=== PATIENT | female | born 1995 | race Caucasian/White ===

== ENCOUNTER 2017-08-20 21:13 | Outpatient (CLI) | payer OTHER ==
[2017-08-20] MEDS ORDERED: LACTATED RINGER'S 500 ML IV (22:18)
[2017-08-20] MEDS: LACTATED RINGER'S 1,000 ML IV ×2 (22:26→23:36)
[2017-08-20 23:15] LABS: ADD UMIC YES; UR ASCORBIC ACID NEGATIVE (NEGATIVE); UR BACTERIA FEW /HPF (NONE SEEN); UR BILIRUBIN (Dip) NEGATIVE (NEGATIVE); UR BLOOD (Dip) NEGATIVE (NEGATIVE); UR CLARITY SLIGHTLY CLOUDY (CLEAR); UR COLOR STRAW (YELLOW); UR GLUCOSE (Dip) NEGATIVE (NEGATIVE); UR KETONES (Dip) NEGATIVE (NEGATIVE); UR LEUKOCYTE ESTERASE (Dip) 3+ Leu/ul (NEGATIVE); UR NITRITE (Dip) NEGATIVE (NEGATIVE); UR RBC 0 /HPF (0-5); UR SPECIFIC GRAVITY (Dip) 1.002 (1.003-1.030); UR TOTAL PROTEIN (Dip) NEGATIVE (NEGATIVE); UR UROBILINOGEN (Dip) NEGATIVE (NEGATIVE); UR WBC 24 /HPF (0-5)
[2017-08-21 00:24] LABS: RUPTURE FETAL MEMBRANES NEGATIVE (NEGATIVE)
[2017-08-21] MEDS: CEPHALEXIN 500 MG CAP PO (01:37)
== END 2017-08-21 01:39 | disposition home or self-care (01) ==
LOC: OBT 21:13 → L-D 21:14
DX: O36.5930 Maternal care for other known or suspected poor fetal growth, third trimester, not applicable or unspecified (principal); Z3A.33 33 weeks gestation of pregnancy
CPT/HCPCS: 76815; 76818; 81001; 84112; 87086; 96360; 96361

== ENCOUNTER 2017-08-31 21:18 | Outpatient (CLI) | payer OTHER ==
[2017-08-31] MEDS ORDERED: CITRIC ACID/SODIUM CITRATE 15 ML CUP PO (22:09)
[2017-08-31] MEDS ORDERED: CITRIC ACID/SODIUM CITRATE 15 ML CUP (22:19)
[2017-08-31] MEDS: CITRIC ACID/SODIUM CITRATE 15 ML CUP PO (22:34)
== END 2017-08-31 23:10 | disposition home or self-care (01) ==
LOC: OBT 21:18 → L-D 21:20
DX: O36.8130 Decreased fetal movements, third trimester, not applicable or unspecified (principal); O26.893 Other specified pregnancy related conditions, third trimester; R10.12 Left upper quadrant pain; Z3A.36 36 weeks gestation of pregnancy
CPT/HCPCS: 76818

== ENCOUNTER 2017-08-31 23:22 | Emergency (ER) | payer OTHER | END 2017-09-01 01:09 | disposition home or self-care (01) | LOC: FTE 23:22 | DX: O99.613 Diseases of the digestive system complicating pregnancy, third trimester (principal); K21.9 Gastro-esophageal reflux disease without esophagitis; R07.9 Chest pain, unspecified; Z3A.37 37 weeks gestation of pregnancy | CPT/HCPCS: 93005; 99283 ==

== ENCOUNTER 2017-09-17 12:31 | Outpatient (CLI) | payer OTHER ==
[2017-09-17 13:33] LABS: RUPTURE FETAL MEMBRANES NEGATIVE (NEGATIVE)
== END 2017-09-17 14:28 | disposition home or self-care (01) ==
LOC: OBT 12:31 → L-D 12:33 → OBT 14:28
DX: O24.92 Unspecified diabetes mellitus in childbirth (principal); Z3A.39 39 weeks gestation of pregnancy
CPT/HCPCS: 76818; 84112

== ENCOUNTER 2017-09-23 00:20 | Inpatient (IN) | payer OTHER ==
[2017-09-23] MEDS ORDERED: LACTATED RINGER'S 1,000 ML IV (01:05)
[2017-09-23] MEDS: LACTATED RINGER'S 1,000 ML IV ×3 (01:15→15:54)
[2017-09-23] MEDS ORDERED: METHYLERGONOVINE 0.2 MG INJ IM (01:30)
[2017-09-23] MEDS ORDERED: MISOPROSTOL 200 MCG TAB PR (01:30)
[2017-09-23] MEDS ORDERED: LIDOCAINE 1% (MPF) 30 ML INJ INJ (01:30)
[2017-09-23] MEDS ORDERED: CARBOPROST 250 MCG INJ IM (01:30)
[2017-09-23] MEDS ORDERED: OXYTOCIN 30 UNITS/LR 500 ML IV ×3 (01:30)
[2017-09-23 02:07] LABS: ADD MAN DIFF? NO
[2017-09-23 02:10] LABS: BASOPHIL # 0.1 10^3/ul (0.0-0.1); BASOPHILS % 0.9 % (0.0-2.0); EOSINOPHILS # 0.2 10^3/ul (0.0-0.5); EOSINOPHILS % 2.3 % (0.0-7.0); HEMATOCRIT 40.1 % (37.0-47.0); HEMOGLOBIN 14.1 g/dl (12.0-16.0); LYMPHOCYTES # 1.6 10^3/ul (0.8-2.9); LYMPHOCYTES % 24.2 % (15.0-51.0); MEAN CORPUSCULAR HEMOGLOBIN 31.3 pg (29.0-33.0); MEAN CORPUSCULAR HGB CONC 35.2 g/dl (32.0-37.0); MEAN CORPUSCULAR VOLUME 89.1 fl (82.0-101.0); MEAN PLATELET VOLUME 11.9 fl (7.4-10.4); MONOCYTE # 0.7 10^3/ul (0.3-0.9); MONOCYTES % 11.2 % (0.0-11.0); NEUTROPHIL # 3.9 10^3/ul (1.6-7.5); NEUTROPHILS % 59.1 % (39.0-77.0); PLATELET COUNT 270 10^3/UL (140-415); RED CELL DISTRIBUTION WIDTH 12.7 % (11.5-14.5)
[2017-09-23 02:10] LABS: WHITE BLOOD COUNT 6.6 10^3/ul (4.8-10.8)
[2017-09-23 02:28] LABS: INR 0.91; PROTIME 12.3 Sec (11.9-14.9)
[2017-09-23 02:29] LABS: PARTIAL THROMBOPLASTIN TIME 24.5 Sec (25.0-35.0)
[2017-09-23] MEDS ORDERED: GUAIFENESIN 20 MG/ML 5ML CUP PO (02:30)
[2017-09-23] MEDS: GUAIFENESIN 20 MG/ML 5ML CUP PO ×4 (03:12→22:50)
[2017-09-23 04:06] LABS: HEPATITIS B SURFACE ANTIGEN NEGATIVE (NEGATIVE)
[2017-09-23] MEDS: ACETAMINOPHEN 325 MG TAB PO (04:14)
[2017-09-23] MEDS ORDERED: ACETAMINOPHEN 325 MG TAB PO (04:30)
[2017-09-23] MEDS: DINOPROSTONE 10 MG VAG SUPP VAG (08:12)
[2017-09-23 14:54] LABS: RAPID PLASMA REAGIN NONREACTIVE (NR)
[2017-09-24] MEDS: BUTORPHANOL 2 MG INJ IV (00:10)
[2017-09-24] MEDS: LACTATED RINGER'S 1,000 ML IV ×2 (00:12→08:35)
[2017-09-24] MEDS: DINOPROSTONE 10 MG VAG SUPP VAG (03:32)
== END 2017-09-24 14:45 | disposition home or self-care (01) | DRG 782 ==
LOC: OBT 00:20 → L-D 00:20 → OBT 01:03 → L-D 01:03
PROVIDERS: Obstetrics & Gynecology
PROC: 3E0P7VZ Introduction of Hormone into Female Reproductive, Via Natural or Artificial Opening (ICD-10-PCS; principal; 2017-09-23)
DX: O48.0 Post-term pregnancy (principal); O61.0 Failed medical induction of labor; Z3A.40 40 weeks gestation of pregnancy
CPT/HCPCS: 36415; 76815; 76818; 85025; 85610; 85730; 86592; 86850; 86900; 86901; 87340

== ENCOUNTER 2017-09-26 08:19 | Outpatient (CLI) | payer OTHER | END 2017-09-26 10:25 | disposition home or self-care (01) | LOC: OBT 08:19 → L-D 08:20 → OBT 10:25 | DX: O24.410 Gestational diabetes mellitus in pregnancy, diet controlled (principal); Z3A.40 40 weeks gestation of pregnancy | CPT/HCPCS: 76815; 76818 ==

== ENCOUNTER 2017-09-27 02:59 | Inpatient (IN) | payer OTHER ==
[2017-09-27] MEDS ORDERED: LACTATED RINGER'S 1,000 ML IV (04:20)
[2017-09-27] MEDS ORDERED: MISOPROSTOL 200 MCG TAB PR ×3 (04:30→18:30)
[2017-09-27] MEDS ORDERED: OXYTOCIN 30 UNITS/LR 500 ML IV ×6 (04:30→18:30)
[2017-09-27] MEDS ORDERED: CARBOPROST 250 MCG INJ IM ×3 (04:30→18:30)
[2017-09-27] MEDS ORDERED: LIDOCAINE 1% (MPF) 30 ML INJ INJ (04:30)
[2017-09-27] MEDS ORDERED: METHYLERGONOVINE 0.2 MG INJ IM ×3 (04:30→18:30)
[2017-09-27] MEDS: LACTATED RINGER'S 1,000 ML IV ×3 (04:35→10:29)
[2017-09-27 05:22] LABS: ADD MAN DIFF? NO
[2017-09-27 05:24] LABS: BASOPHILS % 0.6 % (0.0-2.0); EOSINOPHILS # 0.1 10^3/ul (0.0-0.5); EOSINOPHILS % 1.5 % (0.0-7.0); HEMATOCRIT 36.1 % (37.0-47.0); HEMOGLOBIN 12.6 g/dl (12.0-16.0); LYMPHOCYTES # 2.1 10^3/ul (0.8-2.9); LYMPHOCYTES % 30.2 % (15.0-51.0); MEAN CORPUSCULAR HEMOGLOBIN 31.1 pg (29.0-33.0); MEAN CORPUSCULAR HGB CONC 34.9 g/dl (32.0-37.0); MEAN CORPUSCULAR VOLUME 89.1 fl (82.0-101.0); MEAN PLATELET VOLUME 11.8 fl (7.4-10.4); MONOCYTE # 0.7 10^3/ul (0.3-0.9); MONOCYTES % 9.6 % (0.0-11.0); NEUTROPHIL # 3.8 10^3/ul (1.6-7.5); NEUTROPHILS % 55.9 % (39.0-77.0); PLATELET COUNT 254 10^3/UL (140-415); RED BLOOD COUNT 4.05 10^6/ul (4.20-5.40); RED CELL DISTRIBUTION WIDTH 12.8 % (11.5-14.5)
[2017-09-27 05:24] LABS: WHITE BLOOD COUNT 6.8 10^3/ul (4.8-10.8)
[2017-09-27 06:04] LABS: PARTIAL THROMBOPLASTIN TIME 26.1 Sec (25.0-35.0)
[2017-09-27 06:11] LABS: INR 0.93; PROTIME 12.5 Sec (11.9-14.9)
[2017-09-27] MEDS ORDERED: CEFAZOLIN 2 GM/50 ML (PMX) 50 ML IV (11:00)
[2017-09-27] MEDS: FAMOTIDINE 20 MG INJ IV (11:18)
[2017-09-27] MEDS: CITRIC ACID/SODIUM CITRATE 15 ML CUP PO (11:18)
[2017-09-27] MEDS: METOCLOPRAMIDE 10 MG INJ IV (11:19)
[2017-09-27] MEDS ORDERED: morphine SULFATE/PF (10 MG/10 ML) INJ (13:08)
[2017-09-27] MEDS ORDERED: FENTAnyl 50 MCG/ML VIAL (13:08)
[2017-09-27] MEDS ORDERED: PHENYLephrine (100 MCG/ML) 5ML SYG (13:24)
[2017-09-27] MEDS ORDERED: ONDANSETRON 4 MG INJ (13:29)
[2017-09-27] MEDS ORDERED: FENTAnyl 50 MCG/ML VIAL IV (14:30)
[2017-09-27] MEDS ORDERED: HYDROmorphONE 0.5 MG/0.5 ML SYG IV ×2 (14:30)
[2017-09-27] MEDS ORDERED: HYDROmorphONE (0.2 MG/ML) 10ML SYG IV (14:30)
[2017-09-27] MEDS ORDERED: ZOLPIDEM 5 MG TAB PO (14:30)
[2017-09-27] MEDS ORDERED: KETOROLAC 30 MG INJ IV (14:30)
[2017-09-27] MEDS ORDERED: MEPERIDINE 25 MG INJ IV (14:30)
[2017-09-27] MEDS ORDERED: NALOXONE (0.4 MG/ML) INJ IV (14:30)
[2017-09-27] MEDS ORDERED: ONDANSETRON 4 MG INJ IV (14:30)
[2017-09-27] MEDS ORDERED: DIPHENHYDRAMINE 50 MG INJ IV ×2 (14:30)
[2017-09-27] MEDS ORDERED: NALBUPHINE HCL (10 MG/1 ML) INJ IV (15:00)
[2017-09-27] MEDS: KETOROLAC 30 MG INJ IV (15:53)
[2017-09-27] MEDS: OXYTOCIN 30 UNITS/LR 500 ML IV ×3 (16:22→22:19)
[2017-09-27] MEDS: ONDANSETRON 4 MG INJ IV (16:29)
[2017-09-27] MEDS: PROCHLORPERAZINE 10 MG INJ IV (17:02)
[2017-09-27] MEDS ORDERED: HYDROCODONE/APAP (5/325) TAB PO (18:30)
[2017-09-27 20:37] LABS: RAPID PLASMA REAGIN NONREACTIVE (NR)
[2017-09-27] MEDS: SENNA/DOCUSATE NA (8.6MG/50MG) TAB PO (21:00)
[2017-09-27] MEDS: DEXTROSE 5%-LR 1,000 ML IV (21:19)
[2017-09-27 22:10] LABS: ADD MAN DIFF? NO
[2017-09-27 22:11] LABS: WHITE BLOOD COUNT 12.6 10^3/ul (4.8-10.8)
[2017-09-27 22:11] LABS: BASOPHILS % 0.2 % (0.0-2.0); EOSINOPHILS % 0.2 % (0.0-7.0); HEMATOCRIT 35.4 % (37.0-47.0); HEMOGLOBIN 12.6 g/dl (12.0-16.0); LYMPHOCYTES # 1.5 10^3/ul (0.8-2.9); LYMPHOCYTES % 12.2 % (15.0-51.0); MEAN CORPUSCULAR HEMOGLOBIN 30.9 pg (29.0-33.0); MEAN CORPUSCULAR HGB CONC 35.6 g/dl (32.0-37.0); MEAN CORPUSCULAR VOLUME 86.8 fl (82.0-101.0); MEAN PLATELET VOLUME 11.2 fl (7.4-10.4); MONOCYTE # 0.8 10^3/ul (0.3-0.9); MONOCYTES % 6.4 % (0.0-11.0); NEUTROPHIL # 10.1 10^3/ul (1.6-7.5); NEUTROPHILS % 80.2 % (39.0-77.0); PLATELET COUNT 246 10^3/UL (140-415); RED BLOOD COUNT 4.08 10^6/ul (4.20-5.40); RED CELL DISTRIBUTION WIDTH 12.3 % (11.5-14.5)
[2017-09-27] MEDS: CEFAZOLIN 1 GM/50 ML (PMX) 50 ML IVPB (23:43)
[2017-09-28] MEDS: OXYTOCIN 30 UNITS/LR 500 ML IV ×4 (03:00→14:19)
[2017-09-28] MEDS: DEXTROSE 5%-LR 1,000 ML IV ×2 (06:23→13:30)
[2017-09-28] MEDS: SENNA/DOCUSATE NA (8.6MG/50MG) TAB PO ×2 (09:00→21:16)
[2017-09-28 09:27] LABS: ADD MAN DIFF? NO
[2017-09-28 09:32] LABS: BASOPHILS % 0.3 % (0.0-2.0); EOSINOPHILS % 0.5 % (0.0-7.0); HEMATOCRIT 31.7 % (37.0-47.0); LYMPHOCYTES # 1.4 10^3/ul (0.8-2.9); LYMPHOCYTES % 18.9 % (15.0-51.0); MEAN CORPUSCULAR HEMOGLOBIN 31.1 pg (29.0-33.0); MEAN CORPUSCULAR HGB CONC 34.7 g/dl (32.0-37.0); MEAN CORPUSCULAR VOLUME 89.5 fl (82.0-101.0); MEAN PLATELET VOLUME 11.7 fl (7.4-10.4); MONOCYTE # 0.7 10^3/ul (0.3-0.9); MONOCYTES % 8.7 % (0.0-11.0); NEUTROPHIL # 5.3 10^3/ul (1.6-7.5); NEUTROPHILS % 70.8 % (39.0-77.0); PLATELET COUNT 246 10^3/UL (140-415); RED BLOOD COUNT 3.54 10^6/ul (4.20-5.40); RED CELL DISTRIBUTION WIDTH 12.7 % (11.5-14.5)
[2017-09-28 09:32] LABS: WHITE BLOOD COUNT 7.6 10^3/ul (4.8-10.8)
[2017-09-28] MEDS: OXYCODONE/ACETAMINOPHEN (5/325) TAB PO (13:54)
[2017-09-28] MEDS: IBUPROFEN 600 MG TAB PO (17:48)
[2017-09-29] MEDS: IBUPROFEN 600 MG TAB PO ×5 (00:11→23:34)
[2017-09-29] MEDS: SENNA/DOCUSATE NA (8.6MG/50MG) TAB PO ×2 (09:48→20:48)
[2017-09-29] MEDS: OXYCODONE/ACETAMINOPHEN (5/325) TAB PO ×2 (09:50→22:37)
[2017-09-29] MEDS: HYDROCODONE/APAP (5/325) TAB PO ×2 (16:38→20:49)
[2017-09-30] MEDS: IBUPROFEN 600 MG TAB PO ×2 (05:37→12:32)
[2017-09-30] MEDS: DIPHTH/TET/ACEL PERTUSS (ADULT) 0.5 ML VIAL IM* (09:13)
[2017-09-30] MEDS: SENNA/DOCUSATE NA (8.6MG/50MG) TAB PO (09:13)
[2017-09-30] MEDS: LANOLIN 7 GM TUBE TOP (12:32)
== END 2017-09-30 16:46 | disposition home or self-care (01) | DRG 766 ==
LOC: OBT 02:59 → L-D 03:01 → OBT 04:52 → L-D 04:53 → PP1 18:35
PROVIDERS: Obstetrics & Gynecology
PROC: 10D00Z1 Extraction of Products of Conception, Low, Open Approach (ICD-10-PCS; principal; 2017-09-27 13:15)
DX: O48.0 Post-term pregnancy (principal); Z37.0 Single live birth; Z3A.40 40 weeks gestation of pregnancy
CPT/HCPCS: 76818; 82962; 85025; 85610; 85730; 86592; 86850; 86900; 86901; 96360

== ENCOUNTER 2018-01-16 10:05 | Emergency (ER) | payer OTHER ==
[2018-01-16 10:53] LABS: ADD MAN DIFF? NO
[2018-01-16 10:57] LABS: BASOPHILS % 0.8 % (0.0-2.0); EOSINOPHILS # 0.1 10^3/ul (0.0-0.5); EOSINOPHILS % 1.6 % (0.0-7.0); HEMOGLOBIN 12.7 g/dl (12.0-16.0); LYMPHOCYTES # 1.7 10^3/ul (0.8-2.9); LYMPHOCYTES % 43.4 % (15.0-51.0); MEAN CORPUSCULAR HEMOGLOBIN 29.3 pg (29.0-33.0); MEAN CORPUSCULAR HGB CONC 33.4 g/dl (32.0-37.0); MEAN CORPUSCULAR VOLUME 87.6 fl (82.0-101.0); MONOCYTE # 0.4 10^3/ul (0.3-0.9); MONOCYTES % 9.6 % (0.0-11.0); NEUTROPHIL # 1.7 10^3/ul (1.6-7.5); NEUTROPHILS % 44.3 % (39.0-77.0); PLATELET COUNT 363 10^3/UL (140-415); RED BLOOD COUNT 4.34 10^6/ul (4.20-5.40); RED CELL DISTRIBUTION WIDTH 12.8 % (11.5-14.5)
[2018-01-16 10:57] LABS: WHITE BLOOD COUNT 3.9 10^3/ul (4.8-10.8)
[2018-01-16 11:12] LABS: ADD UMIC NO; UR ASCORBIC ACID NEGATIVE (NEGATIVE); UR BILIRUBIN (Dip) NEGATIVE (NEGATIVE); UR BLOOD (Dip) NEGATIVE (NEGATIVE); UR CLARITY CLEAR (CLEAR); UR COLOR YELLOW (YELLOW); UR GLUCOSE (Dip) NEGATIVE (NEGATIVE); UR KETONES (Dip) NEGATIVE (NEGATIVE); UR LEUKOCYTE ESTERASE (Dip) NEGATIVE Leu/ul (NEGATIVE); UR NITRITE (Dip) NEGATIVE (NEGATIVE); UR SPECIFIC GRAVITY (Dip) 1.014 (1.003-1.030); UR TOTAL PROTEIN (Dip) NEGATIVE (NEGATIVE); UR UROBILINOGEN (Dip) NEGATIVE (NEGATIVE)
[2018-01-16 11:15] LABS: ALANINE AMINOTRANSFERASE 30 IU/L (13-69); ALBUMIN 4.4 g/dl (3.3-4.9); ALKALINE PHOSPHATASE 76 IU/L (42-121); ANION GAP 16 (8-16); ASPARTATE AMINO TRANSFERASE 17 IU/L (15-46); BLOOD UREA NITROGEN 7 mg/dl (7-20); CALCIUM 8.8 mg/dl (8.4-10.2); CARBON DIOXIDE 27 mmol/L (21-31); CHLORIDE 103 mmol/L (97-110); CREATININE 0.57 mg/dl (0.44-1.00); GLUCOSE 85 mg/dl (70-220); LIPASE 91 U/L (23-300); SODIUM 142 mmol/L (135-144); TOTAL PROTEIN 6.6 g/dl (6.1-8.1)
== END 2018-01-16 12:25 | disposition home or self-care (01) ==
LOC: FTE 10:05
DX: R10.12 Left upper quadrant pain (principal)
CPT/HCPCS: 74176; 80053; 81003; 81025; 83690; 85025; 99284-25